=== PATIENT | male | born 1945 | race Caucasian/White ===

== ENCOUNTER 2020-03-24 05:54 | Inpatient (IN) ==
[2019-12-02 14:02] LABS: Basophils # 0.1 10*3/uL (0.0-0.2); Basophils % 1.1 % (0.0-0.8); Eosinophils # 0.5 10*3/uL (0.0-0.87); Eosinophils % 6.6 % (0.00-10.9); Hematocrit 34.5 VOL% (42.0-52.0); Hemoglobin 11.1 GM/DL (14.0-18.0); Immature Granulocytes % 0.3 %; Immature Granulocytes Absolute 0.02 #; Lymphocytes # 2.1 10*3/uL (1.4-4.0); Lymphocytes % 30.4 % (21.2-54.2); Mean Corpuscular HGB Conc 32.2 GM/DL (32-36); Mean Corpuscular Volume 106.5 FL (87-102); Mean Platelet Volume 10.4 FL (9.6-12.0); Neutrophils % 52.6 % (38.7-73.9); Platelet Count 185 T/CUMM (130-400); Red Blood Count 3.24 MC/CUMM (3.8-5.5); Red Cell Distribution Width 13.7 % (9.3-17.3)
[2019-12-02 14:23] LABS: Calcium 9.2 MG/DL (8.5-10.1); Osmolality,Calculated 279.1 MOS/KG (273-304)
[2020-03-18 12:23] LABS: Basophils # 0.1 10*3/uL (0.0-0.2); Basophils % 1.2 % (0.0-0.8); Eosinophils # 0.4 10*3/uL (0.0-0.87); Eosinophils % 6.9 % (0.00-10.9); Hematocrit 35.4 VOL% (42.0-52.0); Hemoglobin 11.3 GM/DL (14.0-18.0); Immature Granulocytes % 0.2 %; Immature Granulocytes Absolute 0.01 #; Lymphocytes # 2.2 10*3/uL (1.4-4.0); Lymphocytes % 35.9 % (21.2-54.2); Mean Corpuscular HGB Conc 31.9 GM/DL (32-36); Mean Corpuscular Volume 107.9 FL (87-102); Monocytes % 7.9 % (1.7-12.7); Neutrophils % 47.9 % (38.7-73.9); Platelet Count 175 T/CUMM (130-400); Red Blood Count 3.28 MC/CUMM (3.8-5.5); Red Cell Distribution Width 14.3 % (9.3-17.3); White Blood Count 6.1 T/CUMM (4-12)
[2020-03-18 12:59] LABS: Albumin 3.4 G/DL (3.4-5.0); Bilirubin,Total 0.7 MG/DL (0.2-1.0); Calcium 8.6 MG/DL (8.5-10.1); Osmolality,Calculated 279.1 MOS/KG (273-304); Total Protein 8.3 G/DL (6.4-8.3)
[2020-03-24] MEDS ORDERED: LACTATED RINGERS 1,000 ML IV SCH ×2 (06:00→14:00)
[2020-03-24] MEDS ORDERED: ceFAZolin 1,000 MG in SYRINGE 1 EACH IV ONE (06:30)
[2020-03-24] MEDS ORDERED: DIAZEPAM 5 MG TABLET PO ONE (06:33)
[2020-03-24] MEDS ORDERED: FAMOTIDINE 20 MG TABLET PO ONE (06:33)
[2020-03-24] MEDS ORDERED: ceFAZolin 1,000 MG VIAL ONE (06:52)
[2020-03-24] MEDS ORDERED: DIAZEPAM 5 MG TABLET ONE (06:52)
[2020-03-24] MEDS ORDERED: FAMOTIDINE 20 MG TABLET ONE (06:52)
[2020-03-24] MEDS ORDERED: HEPARIN/NACL 0.9% 2 UNITS/ML 3,000 ML IV ONE (07:00)
[2020-03-24] MEDS ORDERED: HYDROmorphone 2 MG/1 ML VIAL IV PRN (09:38)
[2020-03-24] MEDS ORDERED: ONDANSETRON 4 MG/2 ML VIAL IV PRN (09:38)
[2020-03-24] MEDS ORDERED: NITROGLYCERIN SL 0.4 MG TABLET SL PRN (09:42)
[2020-03-24] MEDS ORDERED: ACETYLCYSTEINE 600 MG PO SCH (09:45)
[2020-03-24] MEDS ORDERED: HEPARIN/NACL 0.9% 2 UNITS/ML 500 ML IV ONE (10:16)
[2020-03-24] MEDS ORDERED: PHENYLEPHRINE DRIP 20 MG/250 ML PREMIX IV ONE (10:16)
[2020-03-24] MEDS ORDERED: propofoL 200 MG/20 ML VIAL IV ONE (10:16)
[2020-03-24] MEDS ORDERED: LIDOCAINE 1% 5 ML VIAL ONE (10:16)
[2020-03-24] MEDS ORDERED: HEPARIN 10,000 UNIT/10 ML VIAL ONE (10:16)
[2020-03-24] MEDS ORDERED: GLYCOPYRROLATE 0.4 MG/2 ML VIAL ONE (10:17)
[2020-03-24] MEDS ORDERED: MIDAZOLAM 2 MG/2 ML VIAL ONE (10:17)
[2020-03-24] MEDS ORDERED: ETOMIDATE 40 MG/20 ML VIAL IV ONE (10:17)
[2020-03-24] MEDS ORDERED: SEVOFLURANE 1 UNIT/15 MINUTE INH ONE (10:17)
[2020-03-24] MEDS ORDERED: ePHEDrine 50 MG/ML VIAL ONE (10:17)
[2020-03-24] MEDS ORDERED: fentaNYL 100 MCG/2 ML VIAL ONE (10:17)
[2020-03-24] MEDS ORDERED: PHENYLEPHRINE 1 MG/10 ML SYRINGE IV ONE (10:18)
[2020-03-24] MEDS ORDERED: ROCURONIUM 100 MG/10 ML VIAL IV ONE (10:18)
[2020-03-24] MEDS ORDERED: SODIUM CHLORIDE 0.9% 2,000 ML IV ONE (10:18)
[2020-03-24] MEDS ORDERED: NEOSTIGMINE 10 MG/10 ML VIAL ONE (10:18)
[2020-03-24] MEDS ORDERED: PROTAMINE SULFATE 50 MG/5 ML VIAL IV ONE (10:18)
[2020-03-24] MEDS ORDERED: SODIUM CHLORIDE 0.9% 100 ML IV ONE (10:18)
[2020-03-24] MEDS ORDERED: GLUCAGON 1 MG VIAL IM PRN (12:32)
[2020-03-24] MEDS ORDERED: DEXTROSE 50% 25 GM/50 ML VIAL IV PRN (12:32)
[2020-03-24] MEDS: oxyCODONE/ACETAMINOPHEN 5-325 MG TABLET PO PRN (14:47)
[2020-03-24] MEDS: GLIMEPIRIDE 2 MG TABLET PO SCH (16:34)
[2020-03-24] MEDS: INSULIN LISPRO 100 UNIT/ML SUBCUT SCH ×3 (17:18→21:54)
[2020-03-24] MEDS ORDERED: amLODIPine 10 MG TABLET PO SCH (21:00)
[2020-03-24] MEDS ORDERED: OMEGA 3 ACID ETHYL ESTERS 1 GM CAPSULE PO SCH (21:00)
[2020-03-24] MEDS: carvediloL 12.5 MG TABLET PO SCH (21:46)
[2020-03-25] MEDS: oxyCODONE/ACETAMINOPHEN 5-325 MG TABLET PO PRN (04:47)
[2020-03-25 05:19] LABS: Hematocrit 33.9 VOL% (42.0-52.0); Hemoglobin 10.8 GM/DL (14.0-18.0)
[2020-03-25 05:39] LABS: Calcium 8.3 MG/DL (8.5-10.1); Osmolality,Calculated 269.2 MOS/KG (273-304)
[2020-03-25] MEDS ORDERED: LEVOTHYROXINE 112 MCG TABLET PO SCH (06:30)
[2020-03-25] MEDS: INSULIN LISPRO 100 UNIT/ML SUBCUT SCH ×2 (08:45→12:54)
[2020-03-25] MEDS: carvediloL 12.5 MG TABLET PO SCH (08:47)
[2020-03-25] MEDS: GLIMEPIRIDE 2 MG TABLET PO SCH (08:48)
[2020-03-25] MEDS ORDERED: ASPIRIN 325 MG TABLET PO SCH (09:00)
[2020-03-25] MEDS ORDERED: AMIODARONE 200 MG TABLET PO SCH (09:00)
[2020-03-25] MEDS ORDERED: TAMSULOSIN 0.4 MG CAPSULE PO SCH (09:00)
[2020-03-25] MEDS ORDERED: CYANOCOBALAMIN 500 MCG TABLET PO SCH (09:00)
[2020-03-25] MEDS ORDERED: FOLIC ACID 1 MG TABLET PO SCH (09:00)
[2020-03-25] MEDS ORDERED: FUROSEMIDE 40 MG TABLET PO SCH (09:00)
[2020-03-25] MEDS ORDERED: ROSUVASTATIN 20 MG TABLET PO SCH (09:00)
[2020-03-25] MEDS ORDERED: MULTIVITAMIN (CENTRUM) TABLET PO SCH (09:00)
[2020-03-25] MEDS ORDERED: ASCORBIC ACID 500 MG TABLET PO SCH (09:00)
[2020-03-25 11:25] VITALS: BP 138/61
[2020-03-25 12:25] LABS: Apearance,Urine CLEAR (Clear); Bilirubin,Urine Negative (Negative); Blood, Urine Large mg/dL (Negative); Glucose,Urine (UA) 50 mg/dL (Negative); Ketones,Urine Negative (Negative); Nitrite,Urine Negative (Negative); Protein,Urine 100 MG/DL; RBC,Urine 902 /HPF (0-4); Urine Color Red (Yellow); Urine Specific Gravity 1.005 (1.001-1.035); Urine Urobilinogen < 2.0 EU/DL (0.2-1.0)
== END 2020-03-25 13:21 | disposition home or self-care (01) | DRG 269 ==
LOC: N.RAD 05:54 → N.SDSINP 05:55 → N.3E 10:57
PROVIDERS: ADMIT Surgery; ATTEND Surgery
PROC: IRERAAA (2020-03-24 07:51)